=== PATIENT | female | born 1950 | race Caucasian/White ===

== ENCOUNTER 2019-12-10 09:00 | Emergency (ER) | payer MEDICARE, OTHER, SELFPAY ==
[2019-12-10 09:02] VITALS: BP 152/67; PULSE 53; RESP 17; TEMP 36.4; O2SAT 97; BMI 27.8
--- NOTE | 2019-12-10 09:24 | EKG12_ITS ---
Test Reason : Blood Pressure : / mmHG Vent. Rate : 048 BPM Atrial Rate : 048 BPM P-R Int : 162 ms QRS Dur : 092 ms QT Int : 444 ms P-R-T Axes : 067 012 015 degrees QTc Int : 396 ms Sinus bradycardia Low voltage QRS Borderline ECG Confirmed by STONE TERRELL, PATRICOI ([id number]), non linear editor KEMAL WEIR ([id number]) on 12/12/2019 2:12:00 PM Referred By: YANELI Confirmed By:SHARI RITTER MD
--- NOTE | 2019-12-10 09:24 | RAD_ITS ---
STUDY: X-RAY CHEST REASON FOR EXAM: Female, 69 years old. Dizziness and shortness of breath. TECHNIQUE: PA and lateral views. COMPARISON: None. FINDINGS: Minimal subsegmental atelectases in the left lung base. No confluent infiltrates. There is no demonstrated pleural abnormality. Normal size heart. Normal mediastinum and charlette. Normal visualized pulmonary arteries. Normal visualized aortic arch and descending thoracic aorta. Normal visualized thoracic spine. Normal visualized ribs, clavicles, and shoulders. There is no demonstrated abnormality of the visualized soft tissue structures of the upper abdomen. RAD/Chest PA and Lateral IMPRESSION: Horizontal linear subsegmental atelectasis in the left lung base. Electronically Signed: Lamberto Drosey MD at 10:56 EST , Service support ,
[2019-12-10] MEDS: 0.9% Normal Saline 1,000 ML 150 ML IV (09:34)
--- NOTE | 2019-12-10 09:35 | ED.RN ---
NO OLD EKG
[2019-12-10 09:41] LABS: Absolute Lymphocyte Count 1.91 X10^3/uL (0.83-4.51); Absolute Neutrophil Count 4.7 X10^3/uL (2.0-7.7); Basophil# 0.07 X10^3/uL; Basophil% 0.9 % (0-1); Eosinophil# 0.23 X10^3/uL; Hematocrit 45.5 % (37-47); Hemoglobin 15.3 g/dL (12.0-15.0); Lymphocyte # 1.91 X10^3/ul (4.0); Lymphocyte % 25.2 % (19-41); Mean Corp Hgb Conc 33.6 g/dL (32-36); Mean Corpuscular Hgb 31.2 pg (27.0-32.0); Mean Corpuscular Volume 92.9 fL (81-99); Mean Platelet Vol. 9.7 fl (6.2-12.0); Monocyte# 0.67 X10^3/uL; Monocyte% 8.8 % (0-10); NRBC Flagged by Analyzer 0 % (0-5); Neutrophil # 4.68 X10^3/uL (2.7-7.7); Neutrophil % 61.8 % (47-70); Platelet Count 245 K/mm3 (150-450); RBC Distribution Width CV 12.7 % (11.6-14.6); White Blood Count 7.6 K/mm3 (4.4-11.0)
[2019-12-10 09:47] VITALS: BP 136/80; BP 149/84; BP 152/77; PULSE 47; PULSE 54
[2019-12-10 09:47] LABS: Anion Gap 2 (5-15); BUN 14 mg/dL (7-18); BUN/Creat Ratio 14.8 RATIO (10-20); Calcium,Total 8.8 mg/dL (8.5-10.1); Chloride 110 mmol/L (98-107); Creatinine, Serum 0.95 mg/dL (0.55-1.02); EST Glomerular Filtration Rate 61 mL/min (>60); Est Glom Filt Rate - Afr Amer 74 mL/min (>60); Estimated Creatinine Clearance 65.59 ml/min; Glucose 93 mg/dL (74-106); Potassium 4.3 mmol/L (3.5-5.1); Sodium Level 141 mmol/L (136-145)
--- NOTE | 2019-12-10 11:10 | ED.DCSUM_ITS ---
- ER Visit Summary Date of Service: 12/10/19 Chief Complaint: [Dizziness] History of Present Illness: The patient is a 69 F [presents to the emergency department with complaint of dizziness that started this morning. Patient states that he got out of bed and immediately noticed that he felt very off balance. Patient states that symptoms worse with standing and walking. He denies any headache. Denies nausea or vomiting. Patient does complain of some mild shortness of breath. Denies any fever or cough. He denies any chest pain. Patient tells me has no medical problems. Has had no falls or head injuries. He denies recent illness otherwise.] Physical Examination: [HEENT-PERRLA, EOMI. Cranial nerves II through XII grossly intact. TMs clear. Mucous membranes moist. No adenopathy. Cardiovascular-regular rate and rhythm without murmur or ectopy Lungs-clear to auscultation, chest wall stable without crepitus or subcu emphysema Abdomen-normoactive bowel sounds, soft, nontender, no rebound or rigidity, no peritoneal signs. Neuro zgmv-ydwgic-izyz and heel benjamin testing within normal limits, negative Romberg, negative for drift, fundi benign. Hallpike maneuver performed showed some mild nystagmus with the slow face to the left. Extremities-intact ?4, normal range of motion, normal pulses, atraumatic] Test Results: [EKG obtained arrival shows sinus bradycardia with a ventricular rate of 48 bpm with no acute segment changes. CBC with differential obtained was normal. Chemistries normal. Troponin was less than 0.15. Orthostatic vital signs were negative. And chest x-ray obtained showed atelectasis of the left lung base otherwise nothing acute.] Emergency Department Course and Treatment: Patient placed on teletypesetter monitor. Patient was given Antivert 25 mg p.o. Symptoms essentially resolved. Patient was able ambulate in department without difficulty. [] Treatment Plan: [We will be given a prescription for Antivert. Patient will be referred to his primary care physician for follow-up in 3 to 5 days.] Disposition: [Discharged home in stable condition.] Impression: [Dizziness/benign positional vertigo-resolved] This note was generated with Magzter[employer] software. It may contain incorrect words, spelling, and punctuation that were not noted in review of the chart prior to signing ED Disposition - Plan for ED Patient: Referrals: Cipriano Hammond [Primary Care Provider] -
--- NOTE | 2019-12-10 11:14 | ED.DEP ---
ED Disposition - Plan for ED Patient: Instructions: DIZZINESS, Unk Cause, Benign Positional Vertigo Prescriptions: Meclizine HCl [Antivert] 25 mg PO 4X/DAY PRN PRN #20 tab PRN Reason: Dizziness Prescription Printed Referrals: Cipriano Hammond [Primary Care Provider] - 3-5 Days
== END 2019-12-10 11:31 | disposition home or self-care (01) ==
PROVIDERS: Emergency Provider Emergency Medicine; PCP Internal Medicine
DX: H81.10 Benign paroxysmal vertigo, unspecified ear (principal)
CPT/HCPCS: 71046; 80048; 84484; 85025; 93005; 96360; 96361; 99284; J7030; A4216

== ENCOUNTER 2025-03-23 12:49 | Emergency (ER) | payer MEDICARE, OTHER, SELFPAY ==
[2025-03-23] VITALS (26 sets, daily range): BP systolic 99–124; BP diastolic 52–76; PULSE 58–74; RESP 14–28; TEMP 36.1–37.1; O2SAT 92–100; BMI 25.4
--- NOTE | 2025-03-23 13:06 | EX.ED.DYSGE1 ---
HPI History of Present Illness Chief Complaint: Abn Labs Narrative Narrative: Chief complaint and HPI: Blood transfusion. 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 History taken by patient as well as [facility] provider from oncology who called me prior to patient's arrival. They have been trending patient's anemia. He received 1 unit on Thursday. Hemoglobin today was 7.1 and they would like the patient to receive 2 units prior to surgery tomorrow at [facility]. Patient has no complaints at this time. Denies any lightheadedness, fatigue, weakness. Review of systems: See HPI Medications: As listed on the chart Allergies: As listed on the chart PFSH: Per chart Vital signs: As listed on the chart. Reviewed. Physical exam: Gen: A&O x3, NAD Head: Normocephalic, atraumatic ENT: Moist mucous membranes CV: RRR, no murmurs, no peripheral edema Resp: Lungs CTA BL, no w/r/c Musc: Full ROM, no deformity Skin: Warm, dry, pale Neuro: Alert, oriented, grossly intact, sensation intact Psych: Cooperative [facility] Medical History (Updated 03/23/25 @ 15:36 by Laura Barbosa) Duodenal adenocarcinoma GERD (gastroesophageal reflux disease) Home Medications ?Medication ?Instructions ?Recorded ?Last Taken ?Type pantoprazole 40 mg tablet,delayed 40 mg PO DAILY 03/23/25 03/23/25 History release Allergy/AdvReac Type Severity Reaction Status Date / Time iodine Allergy Severe Itching Verified 03/23/25 12:55 Surgical History History of cholecystectomy Social History Smoking Status: Former smoker EXAM Physical Exam Const Vital Signs: 03/23/25 12:50 03/23/25 13:18 03/23/25 14:50 Temperature 96.9 F L Temperature Source Temporal Pulse Rate 74 58 L Respiratory Rate 17 24 H Respiratory Effort Normal Respiratory Depth Respiratory Pattern Normal Blood Pressure 112/67 115/52 L Blood Pressure Mean 82 73 Blood Pressure Source Blood Pressure Position Blood Pressure Location Pulse Ox 99 100 Oxygen Delivery Method Room Air Room Air 03/23/25 15:15 03/23/25 15:21 03/23/25 15:36 Temperature 98.3 F 98.5 F Temperature Source Oral Oral Pulse Rate 62 62 Respiratory Rate 16 17 Respiratory Effort Normal Respiratory Depth Normal Respiratory Pattern Normal Blood Pressure 115/58 L 117/71 Blood Pressure Mean 77 86 Blood Pressure Source Monitor Monitor Blood Pressure Position Semi-Fowlers Semi-Fowlers Blood Pressure Location Right Arm Right Arm Pulse Ox 100 100 Oxygen Delivery Method Room Air Room Air Room Air MDM MDM MDM Narrative Medical decision making narrative: 74-year-old male 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 History taken by patient as well as [facility] provider from oncology who called me prior to patient's arrival. They have been trending patient's anemia. He received 1 unit on Thursday. Hemoglobin today was 7.1 and they would like the patient to receive 2 units prior to surgery tomorrow at [facility]. Patient has no complaints at this time. Will repeat H&H and type and screen so patient can receive blood. Hemoglobin here is 6.1. Patient will receive 2 units. He is AB positive. Patient was informed of his lab results and the plan. Patient is currently receiving his blood products. Plan will be to discharge home after transfusion. Patient signed out to oncoming physician. Impression: 1. Acute on chronic anemia requiring 2 units packed red blood cells for transfusion for surgery 2. History of duodenal adenocarcinoma scheduled for Whipple procedure Lab Data Labs: Laboratory Results - last 24 hr 03/23/25 13:20 Hgb 6.1 L Blood Type AB POSITIVE Antibody Screen NEGATIVE Crossmatch See Detail Discharge Plan Triage Chief Complaint: Abn Labs ED Provider: Rico Burton Dx/Rx/DC Orders Prescriptions: No Action pantoprazole 40 mg tablet,delayed release (DR/EC) 40 mg PO DAILY Patient Comments: PT DOES NOT TAKE EVERY DAY Primary Care Provider: Cipriano Hammond Referrals: Cipriano Hammond MD [Primary Care Provider] - Print Language: Israeli
[2025-03-23 13:35] LABS: Hemoglobin 6.1 g/dL (13.0-16.5)
== END 2025-03-23 19:45 | disposition home or self-care (01) ==
PROVIDERS: Emergency Provider Surgery; PCP Internal Medicine; Visit Provider Surgery
DX: D64.9 Anemia, unspecified (principal); C17.0 Malignant neoplasm of duodenum; Z87.891 Personal history of nicotine dependence; K21.9 Gastro-esophageal reflux disease without esophagitis; Z79.899 Other long term (current) drug therapy
CPT/HCPCS: 85018; 86644; 86850; 86900; 86901; 86920; 99283; P9016; A4216

== ENCOUNTER 2025-05-15 09:11 | Day surgery (SDC) | payer MEDICARE, OTHER, SELFPAY ==
--- NOTE | 2025-05-12 16:48 | PAT.ANESEVAL ---
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 When Was Last Pacemaker Check QUESTION #4 FULL TEXT: You/Your Family Experience fever (hyperthermia) with Anesthesia Last Oral Intake Last Oral intake: Last Oral Intake NPO since Meds taken in AM with sips of water? Meds patient instructed to take am of surgery PONV PONV - integration software developer: PONV - integration software developer Female No 05/12/25 10:15 HX of Motion Sickness No 05/12/25 10:15 HX of N/V After Surgery No 05/12/25 10:15 Non-Smoker Yes 05/12/25 10:15 Duration of Surgery greater No 05/12/25 10:15 than 60 minutes Number of Risk Factors 1 05/12/25 10:15 PONV Score Low Risk 05/12/25 10:15 Height & Weight Height & Weight: Anesthesia: Height & Weight Height 6 ft 1 in 05/10/25 13:34 Respiratory Assessment Respiratory Assessment - integration software developer: Respiratory Tract Infection Hx - integration software developer Hx Respiratory Tract Infection No 05/12/25 10:15 STOP Sleep Apnea STOP Sleep Apnea - integration software developer: STOP Sleep Apnea - integration software developer Hx Hypertension No 05/12/25 10:15 Hx Sleep Apnea No 05/12/25 10:15 CPAP BIPAP Do you snore loudly (louder No 05/12/25 10:15 than talking or can be heard Do you often feel tired/ Yes 05/12/25 10:15 fatigued/ sleepy during daytime? Has anyone observed you stop No 05/12/25 10:15 breathing during sleep? STOP Results Negative 05/12/25 10:15 QUESTION #5 FULL TEXT : Do you snore loudly (louder than talking or can be heard through closed doors)? Tobacco Use History Tobacco Use History - integration software developer: Tobacco Use History - integration software developer Tobacco Use Smoking Status Former smoker 05/12/25 10:15 Hx Tobacco Use Yes 05/12/25 10:15 Years Smoking Packs Smoked per Day Smoking Cessation Date was Yes - quit smoking within 15 05/12/25 10:15 within the last 15 years years Hx Smoking Cessation Date 03/23/24 05/12/25 10:15 Hx Smoking Cessation Counseling Hematologic Medial History Hematologic Hx - integration software developer: Hematologic Medical Hx - armature winder repair Hx of Blood Transfusion Yes 05/12/25 10:15 Hx of Transfusion in last 3 Yes 05/12/25 10:15 Months Date of Last Transfusion (if 03/23/25 05/12/25 10:15 within last 3 months) Ever experience any problems No 05/12/25 10:15 with transfusion(s)? Specify any problems Hx of Preganancy in last 3 N/A 05/12/25 10:15 Months Nurse Filling Out Transfusion DSCHRIBER 05/12/25 10:15 & Questions: Date: 05/12/25 05/12/25 10:15 Time: 10:16 05/12/25 10:15 Patient unable to answer at this time (ie. confused, unrespo /Reproduction History /Reproductive History - integration software developer: /Reproductive Hx- integration software developer Hx Now No 05/12/25 10:15 Gestational Age (in weeks): EDC: Hx Hx Para Hx Section SAB No 05/12/25 10:15 Active Medications Active Medications: Current Medications Generic Name Dose Route Start Last Admin Trade Name Freq PRN Reason Stop Dose Admin Cefazolin Sodium 2 gm/ Sodium 110 mls @ 200 mls/hr 05/15/25 11:00 Chloride IV 05/15/25 11:32 INTRAOP ONE [facility] Medical History (Updated 05/12/25 @ 10:26 by Kirsty Gonzalez) Cancer Former smoker History of edema History of stress test History of echocardiogram Cancer of duodenum Iron deficiency anemia due to chronic blood loss Anemia Regional lymph node metastasis present BPH (benign prostatic hyperplasia) GERD (gastroesophageal reflux disease) Home Medications ?Medication ?Instructions ?Recorded ?Last Taken ?Type pantoprazole 40 mg tablet,delayed 40 mg PO DAILY 03/23/25 03/23/25 History release lidocaine-prilocaine 2.5 %-2.5 % 1 applic topical ONCE PRN port 05/09/25 Unknown Rx topical cream access 30 days #30 grams ondansetron 8 mg disintegrating 8 mg PO Q8H PRN nausea and 05/09/25 Unknown Rx tablet vomiting #30 tabs prochlorperazine maleate 10 mg 10 mg PO Q6H PRN nausea and 05/09/25 Unknown Rx tablet vomiting #30 tabs Allergy/AdvReac Type Severity Reaction Status Date / Time iodine Allergy Severe Itching Verified 05/12/25 10:13 Family History Mother Breast cancer, Onset Age: 75 Surgical History History of Whipple procedure History of cholecystectomy Social History Smoking Status: Former smoker Tobacco: How many years used: 20 alcohol intake: never substance use type: does not use Audit: Pertinent Findings Pertinent Findings EKG Perinent findings: March 26, 2025. Atrial fibrillation with rapid ventricular response at [address] and T wave abnormality consider inferolateral ischemia. Echo (EF%) pertinent findings: March 21, 2025. Normal global systolic function. EF of 65 to 70%. Diastolic function is normal. No aortic stenosis noted. Additional pertinent findings: Latest hemoglobin on May 01, 2025 is 9.8 g/dL Recommendation Anesthesia Recommendation Anesthesia recommendation: OPTIMIZED for anesthesia (EKG on 03/26/2025 showed atrial fibrillation with RVR and inf-lat ischemia. Patient was also severely anemic. Currently the patient's Hgb has improved to 9.8 g/dL. The echo done on March 21, 2025 is stable as above. This is a low risk procedure in a stable patient. Okay to proceed with anesthesia.)
--- NOTE | 2025-05-15 09:18 | PCM.HP.BLA ---
History and Physical Date of Admission: 05/15/25 Date of Service: 05/10/25 MR#: [id number] Acct: [id number] Name: GENARO COLEY Rep #: [id number] : 1950 Provider: Dr. Lisa Armstrong MD Age/Sex: 75/M Location: [facility] Status: Signed Intake Vital Signs 05/01/2510:11 05/09/2515:03 05/10/2513:34 Height 6 ft 1 in 6 ft 1 in 6 ft 1 in Weight: 178 lb 2 oz BMI 23.5 BP 144/72 H Blood Pressure Location Rt brachial Position Sitting Respiration 18 Pulse 72 Pulse Source Monitor Temp 97.2 F L Temp Source Temporal Pulse Oximetry (%) 99 Oxygen Delivery Method room air Intake Visit Reasons: PORT PLACEMENT Chief Complaint: port placement Accompanied by: Is patient in pain?: No Allergies iodine Allergy (Severe, Verified 05/10/25 13:35) Itching Medications ?Medication ?Instructions ?Recorded ?Confirmed ?Type pantoprazole 40 mg tablet,delayed 40 mg PO DAILY 03/23/25 05/10/25 History release lidocaine-prilocaine 2.5 %-2.5 % 1 applic topical ONCE PRN port 05/09/25 05/10/25 Rx topical cream access 30 days #30 grams ondansetron 8 mg disintegrating 8 mg PO Q8H PRN nausea and 05/09/25 05/10/25 Rx tablet vomiting #30 tabs prochlorperazine maleate 10 mg 10 mg PO Q6H PRN nausea and 05/09/25 05/10/25 Rx tablet vomiting #30 tabs Have you fallen in the past year?: No PFSH Medical History Encounter for education Cancer of duodenum Iron deficiency anemia due to chronic blood loss Anemia Regional lymph node metastasis present BPH (benign prostatic hyperplasia) GERD (gastroesophageal reflux disease) Surgical History History of Whipple procedure History of cholecystectomy Family History Mother Breast cancer, Onset Age: 75 Social History Smoking Status: Former smoker Tobacco: How many years used: 20 alcohol intake: never substance use type: does not use HPI HPI HPI: 75-year-old male presents for port placement due to duodenal carcinoma. Patient status post Whipple end of April at [facility]. Patient starting chemotherapy on May 24 per patient. ROS General General: Yes weight change and fatigue; No appetite, colon cancer, breast cancer or weakness HEENT HEENT: No difficulty swallowing, eye injury, eye surgery, swollen glands or hoarseness Endo Endocrine: No thyroid disease, diabetes mellitus, thyroid cancer, Hair loss, heat intolerance or cold intolerance Skin Skin: No rash or changing moles Musc Musculoskeletal: No back problems, arthritis, rheumatoid arthritis, gout or joint pain Cardio Cardiovascular: No murmur, pacemaker, heart disease, atrial fibrillation, high blood pressure, heart attack, heart stent, palpitations, shortness of breath with exertion or chest pain Psych Psychiatric: No depression, anxiety or hearing voices Resp Respiratory: No shortness of breath, No sleep apnea, No cough, No COPD, No asthma, No emphysema and No wheezing Gastro Gastrointestinal: No abdominal pain, No nausea or vomiting, No diarrhea, No constipation, No blood in stool, No acid reflux, No hemorrhoids, No ulcers, No gallbladder problem and No black,tarry stools Ki Hematologic: No blood thinners, No blood disorders, No bleeding, No anemia and No blood clots Neuro Neurologic: No numbness, No tingling and No weakness Exam Const General: cooperative, comfortable and no acute distress [facility] Head: normocephalic and atraumatic Neck Neck: supple Chest Other: Palpation bilateral upper chest normal Resp Effort & Inspection: normal respiratory effort Cardio Rate: regular rate GI Inspection: non-distended Palpation: soft Other: Midline incision healing well Skin General: no rashes or lesions noted Neuro General: CN's II-XI intact bilaterally Extrem General: normal to inspection Psych Mental Status: mental status grossly normal Attitude: cooperative Assessment and Plan Assessment and Plan (1) Encounter for insertion of venous access port: Status: Acute (2) Cancer of duodenum: Status: Acute Plan I have discussed above with the patient- Port-a-Cath placement. Right possible left IJ Patient has been counseled as to the risks/benefits of the procedure. I have explained the risks of the surgery, including but not limited to: infection, bleeding, injury to any blood vessels/nerves, injury to lungs (such as pneumothorax or hemothorax and need for chest tube), not having any access, nonfunctioning of port due to thrombosis, infection of port, etc. the patient understands and agrees to proceed. I have answered all the patient's questions to the patient?s satisfaction and the patient has no further questions. Lisa Armstrong M.D. Pager: [phone] [facility] [address] [place] [address], [address] [place] [address] Office: [phone] Coding Level of Care Code Off vis,new,level 3 Diagnoses Encounter for insertion of venous access port Z45.2 Cancer of duodenum C17.0 Clinical Quality Measures Falls Risk Screening/Assistive Devices Have you fallen in the past year?: No 05/10/25 1358 <Electronically signed by Lisa Armstrong MD> Date Lisa Armstrong MD
--- NOTE | 2025-05-15 09:34 | PCM.PRE.AN2 ---
ASA Classification* ASA Classification ASA Classification: 3 Assessment & Plan Anesthesia* Anesthesia Assessment Anesthesia Assessment: Discussed sedation and/or anesthesia options, risks, benefits, and alternatives with patient/parents/legal guardian/POA. Questions invited. The patient/parents/legal guardian/POA seems to understand and agrees to proceed with anesthesia plan. Reviewed the physical assessment, medical history, allergy history and patient home medications list prior to surgery/procedure/anesthetic and documented any changes. Performed airway and anesthesia risk assessments. Anesthesia Type Anesthesia Type: MAC Anesthesia Focused Assessment* Airway Assessment Mouth opens: >3 cm Mallampati Score: II Labs Anesthesia Preop lab: CBC WBC 12.9 K/mm3 (4.4-11.0) H 05/01/25 11:05/01/25 RBC 3.94 M/mm3 (4.6-6.2) L 05/01/25 11:05/01/25 Hgb 9.8 g/dL (13.0-16.5) L 05/01/25 11:05/01/25 Hct 32.3 % (40-54) L 05/01/25 11:05/01/25 Plt Count 605 K/mm3 (150-450) H 05/01/25 11:05/01/25 CHEMISTRY Potassium 3.8 mmol/L (3.3-5.1) 05/01/25 11:05/01/25 Sodium 138 mmol/L (133-145) 05/01/25 11:05/01/25 Magnesium 2.2 mg/dL (1.5-2.2) 05/01/25 11:05/01/25 Phosphorus 3.1 mg/dL (2.7-4.5) 05/01/25 11:05/01/25 BUN 7 mg/dL (4-19) 05/01/25 11:05/01/25 Creatinine 0.61 mg/dL (0.70-1.20) L 05/01/25 11:05/01/25 Glucose 103 mg/dL (70-99) H 05/01/25 11:05/01/25 COAG Pre-Assessment Diagnosis/Proposed Procedure Planned Operative Procedure(s): RIGHT POSS LEFT INTERNAL JUGULAR PORT Anesthesia History 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 When Was Last Pacemaker Check QUESTION #4 FULL TEXT: You/Your Family Experience fever (hyperthermia) with Anesthesia Last Oral Intake Last Oral intake: Last Oral Intake NPO since Meds taken in AM with sips of water? Meds patient instructed to take am of surgery PONV PONV - pin machine operator: PONV - pin machine operator Female No 05/12/25 10:15 HX of Motion Sickness No 05/12/25 10:15 HX of N/V After Surgery No 05/12/25 10:15 Non-Smoker Yes 05/12/25 10:15 Duration of Surgery greater No 05/12/25 10:15 than 60 minutes Number of Risk Factors 1 05/12/25 10:15 PONV Score Low Risk 05/12/25 10:15 Height & Weight Height & Weight: Anesthesia: Height & Weight Height 6 ft 1 in 05/10/25 13:34 Respiratory Assessment Respiratory Assessment - pin machine operator: Respiratory Tract Infection Hx - pin machine operator Hx Respiratory Tract Infection No 05/12/25 10:15 STOP Sleep Apnea STOP Sleep Apnea - pin machine operator: STOP Sleep Apnea - pin machine operator Hx Hypertension No 05/12/25 10:15 Hx Sleep Apnea No 05/12/25 10:15 CPAP BIPAP Do you snore loudly (louder No 05/12/25 10:15 than talking or can be heard Do you often feel tired/ Yes 05/12/25 10:15 fatigued/ sleepy during daytime? Has anyone observed you stop No 05/12/25 10:15 breathing during sleep? STOP Results Negative 05/12/25 10:15 QUESTION #5 FULL TEXT : Do you snore loudly (louder than talking or can be heard through closed doors)? Tobacco Use History Tobacco Use History - pin machine operator: Tobacco Use History - pin machine operator Tobacco Use Smoking Status Former smoker 05/12/25 10:15 Hx Tobacco Use Yes 05/12/25 10:15 Years Smoking Packs Smoked per Day Smoking Cessation Date was Yes - quit smoking within 15 05/12/25 10:15 within the last 15 years years Hx Smoking Cessation Date 03/23/24 05/12/25 10:15 Hx Smoking Cessation Counseling Hematologic Medial History Hematologic Hx - pin machine operator: Hematologic Medical Hx - armature bander Hx of Blood Transfusion Yes 05/12/25 10:15 Hx of Transfusion in last 3 Yes 05/12/25 10:15 Months Date of Last Transfusion (if 03/23/25 05/12/25 10:15 within last 3 months) Ever experience any problems No 05/12/25 10:15 with transfusion(s)? Specify any problems Hx of Preganancy in last 3 N/A 05/12/25 10:15 Months Nurse Filling Out Transfusion DSCHRIBER 05/12/25 10:15 & Questions: Date: 05/12/25 05/12/25 10:15 Time: 10:16 05/12/25 10:15 Patient unable to answer at this time (ie. confused, unrespo /Reproduction History /Reproductive History - pin machine operator: /Reproductive Hx- pin machine operator Hx Now No 05/12/25 10:15 Gestational Age (in weeks): EDC: Hx Hx Para Hx Section SAB No 05/12/25 10:15 Active Medications Active Medications: Current Medications Generic Name Dose Route Start Last Admin Trade Name Freq PRN Reason Stop Dose Admin Cefazolin Sodium 2 gm/ Sodium 110 mls @ 200 mls/hr 05/15/25 11:00 Chloride IV 05/15/25 11:32 INTRAOP ONE Lactated Ringer's 1,000 mls @ 15 mls/hr 05/15/25 09:30 IV .Q48H PAMELA PFSH Medical History Cancer Former smoker History of edema History of stress test History of echocardiogram Cancer of duodenum Iron deficiency anemia due to chronic blood loss Anemia Regional lymph node metastasis present BPH (benign prostatic hyperplasia) GERD (gastroesophageal reflux disease) Home Medications ?Medication ?Instructions ?Recorded ?Last Taken ?Type pantoprazole 40 mg tablet,delayed 40 mg PO DAILY 03/23/25 03/23/25 History release lidocaine-prilocaine 2.5 %-2.5 % 1 applic topical ONCE PRN port 05/09/25 Unknown Rx topical cream access 30 days #30 grams ondansetron 8 mg disintegrating 8 mg PO Q8H PRN nausea and 05/09/25 Unknown Rx tablet vomiting #30 tabs prochlorperazine maleate 10 mg 10 mg PO Q6H PRN nausea and 05/09/25 Unknown Rx tablet vomiting #30 tabs Allergy/AdvReac Type Severity Reaction Status Date / Time iodine Allergy Severe Itching Verified 05/12/25 10:13 Family History Mother Breast cancer, Onset Age: 75 Surgical History History of Whipple procedure History of cholecystectomy Social History Smoking Status: Former smoker Tobacco: How many years used: 20 alcohol intake: never substance use type: does not use Review of Systems (Anesthesia) ROS Narrative System reviewed and no additional complaints, except as documented.
[2025-05-15 09:45] VITALS: BP 133/78; PULSE 63; RESP 20; TEMP 36.2; O2SAT 95; BMI 22.6
[2025-05-15] MEDS: Lactated Ringers 1,000 ML 15 ML IV (09:55)
[2025-05-15] MEDS: Lidocaine 1% /Epi 1:100 (20ml) 20 ML Vial (11:45)
--- NOTE | 2025-05-15 11:55 | RAD_ITS ---
PROCEDURE: CXR FOR LINE PLACEMENT 05/15/2025 REASON FOR EXAM: PORT TECHNIQUE: CXR FOR LINE PLACEMENT COMPARISON: None FINDINGS: A right-sided port a catheter has been placed. The tip is at the junction of the superior vena cava and right atrium. No evidence of pneumothorax. RAD/CXR for Line Placement IMPRESSION: The tip of the right-sided port a catheter is at the junction of the superior v agustín cava and right atrium. No evidence of pneumothorax. Reading Location: [facility]
--- NOTE | 2025-05-15 11:55 | OP.PCM_ITS ---
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, duodenal carcinoma Post-Operative Diagnosis: Same Surgery/Procedure Performed: Placement of right IJ Port-A-Cath Use of fluoroscopy Use of ultrasound project analyst: No Type of Anesthesia: Local MAC RN Documented Start/Stop Times: Operation Date: 05/15/25 11:00 Case Time Into Pre-Op 05/15/25 09:19 Out of Pre-Op 05/15/25 11:08 Anesthesia Start 05/15/25 11:12 Into Room 05/15/25 11:12 Procedure Start 05/15/25 11:29 Procedure End 05/15/25 11:52 Anesthesia End 05/15/25 11:57 Out of Room 05/15/25 11:57 Into Recovery 05/15/25 12:00 Out of Recovery 05/15/25 12:12 Into Phase II Recovery 05/15/25 12:14 Out of Phase II 05/15/25 13:02 Procedure Start Time: 11:29 Procedure Stop Time: 11:52 Select all DRAINS/GRAFTS/IMPLANTS that apply: Implanted device Implanted device details: [employer] PowerPort isp M.R.I. 6Fr Lot [id number] Special Medications: Ancef 2 g IV x 1 Estimated Blood Loss: < 10 cc Specimen collected: No Description of surgery: After informed consent was given, the patient was brought to the operating room and placed in the supine position. Appropriate time out protocol was followed. Patient was then given IV conscious sedation for anesthesia. The patient's right upper chest and neck were then prepped with a surgical skin preparation and sterile surgical drapes were placed. After proper landmarks were ascertained, the skin at the upper right chest area was then infiltrated with 1:1 mixture of 1% lidocaine with epinephrine and 0.5% marcaine. A needle trocar was then inserted into the right internal jugular vein with ultrasound guidance-multiple vessels were viewed with u/s and the right IJ was chosen-- and there was good aspiration of venous blood. A wire was then threaded into the needle trocar and this was visualized under fluoroscopy to ensure that the wire was in the superior vena cava. Once this was done, then the needle trocar was removed. A small skin rajesh was made with an 11 blade knife at the wire entrance site. The dilator with the introducer sheath attached was then placed over the wire into the right internal jugular vein via the Seldinger technique and this was visualized under fluoroscopy. The dilator and sheath were in proper position as visualized by fluoroscopy. A subcutaneous pocket was then created caudad to the catheter insertion site. A transverse skin incision was made after the skin and subcutaneous tissues were infiltrated with local anesthetic. Blunt dissection was then used to create a space large enough for placement of the subcutaneous port. The catheter was then tunneled into the subcutaneous pocket. The wire and dilator were then removed. The catheter was then threaded into the introducer sheath and was positioned with its tip at the junction of the superior vena cava and the right atrium as visualized under fluoroscopy. The excess catheter was transected. The catheter was then attached to the subcutaneous port using manufacturers guidelines. The catheter was flushed with a heparin saline mixture prior to placement. Hemostasis was carefully controlled with electrocautery. The port was sutured to the subcutaneous fascia using 2-0 Vicryl suture at two sites. The port was then placed in the subcutaneous pocket. The incision were reapproximated with interrupted subdermal 3-0 vicryl sutures. The skin was reapproximated with 3-0 nylon suture in a interrupted fashion. Steristrips were used for reinforcement of the skin closure at IJ insertion site and a sterile opsite dressings were applied. The patient tolerated the procedure well. Surgical Findings: See operative report Complications Complications: No
[2025-05-15 12:00] VITALS: BP 123/68; BP 133/78; PULSE 63; PULSE 65; RESP 16; RESP 18; TEMP 36.6; O2SAT 100
--- NOTE | 2025-05-15 12:00 | PCM.POST.ANE ---
Anesthesia: Postop Eval I Current Vital Signs Temperature: 97.9 F Pulse Rate: 65 Blood Pressure: 123/68 Respiratory Rate: 18 Pulse Ox: 100 Assessment Airway patent: Yes Spontaneous unlabored respirations: Yes nausea: No Vomiting: No Anesthesia Complication: No Fluid Hydration Crystalloid volume administer (ml): 1,000 Total IV fluid infused: 1,000 Progress Note Anesthesia document: Postop Eval 1 completed: Yes
[2025-05-15 12:05] VITALS: BP 133/78; BP 140/79; PULSE 64; RESP 16; O2SAT 100
--- NOTE | 2025-05-15 12:06 | EX.PCM.DISCH ---
Discharge Instructions Procedure Port-A-Cath Diet Discharge Diet: Light diet - advance as tolerated Activity May shower in (days): 5 (Keep port site clean and dry x5 days. Neck incision okay to get wet after 1 day. Okay to lower shower and upper sponge bath. OR okay to taper off port site with a Ziploc bag to shower) Lifting Restrictions: No lifting > 15 pounds for 3 days with the arm on the side of the port Dressing / Incision Call your doctor if your incision/area has: Continuous Slow Oozing, Sudden Increased Bleeding, Increased Pain/ Swelling, Increased Redness, Foul Smelling Discharge and Swelling at the incision site Call your doctor if you observe: Fever of 101 or Higher Change Dressing in: 2 days (2-3 days- port site; ok to remove neck opsite in 1 day) Follow Up Care Please Follow Up With: Lisa Armstrong MD When: In 10 days for permanent suture removal?call office for appointment Test Results: Test results from this visit will be discussed in further detail at your follow-up appointment, if applicable. Discharge Plan Admission Attending Provider: Lisa Armstrong Primary Care Provider: Isidra Quiros Instructions Print Language: Colombian Discharge Orders/Prescriptions Prescriptions: New tramadol 50 mg tablet 50 mg PO Q6H PRN (Reason: pain) 3 Days Qty: 5 0RF Continued lidocaine-prilocaine 2.5-2.5 % cream 1 applic topical ONCE PRN (Reason: port access) 30 Days Qty: 30 2RF ondansetron 8 mg tablet,disintegrating 8 mg PO Q8H PRN (Reason: nausea and vomiting) Qty: 30 2RF prochlorperazine maleate 10 mg tablet 10 mg PO Q6H PRN (Reason: nausea and vomiting) Qty: 30 2RF pantoprazole 40 mg tablet,delayed release (DR/EC) 40 mg PO DAILY Patient Comments: PT DOES NOT TAKE EVERY DAY Referrals / Follow Up: Isidra Quiros MD [Primary Care Provider] - Disposition Disposition (needs filled in before D/C Order can be placed): Home, Self Care
[2025-05-15 12:10] VITALS: BP 133/78; BP 138/82; PULSE 63; RESP 16; TEMP 37; O2SAT 100
[2025-05-15 12:40] VITALS: BP 133/78
--- NOTE | 2025-05-15 13:56 | POSTOPAN2_ITS ---
Anesthesia Postop Eval I Sum Postop Eval Completion status Anesthesia document: Postop Eval 1 completed: Yes Anesthesia Postop Eval I Summary Anesthesia Postop Eval I Summary: Anesthesia Postop Eval I: Assessment Summary Airway patent Yes 05/15/25 12:00 UTILIZATION MANAGEMENT MANAGER.CSIR Spontaneous unlabored Yes 05/15/25 12:00 UTILIZATION MANAGEMENT MANAGER.CSIR respirations Mental status nausea No 05/15/25 12:00 UTILIZATION MANAGEMENT MANAGER.CSIR Vomiting No 05/15/25 12:00 UTILIZATION MANAGEMENT MANAGER.CSIR Anesthesia Postop Eval I: Fluid Summary Crystalloid volume administer 1,000 05/15/25 12:00 UTILIZATION MANAGEMENT MANAGER.CSIR (ml) Colloids volume administered ( ml) Blood Product volume administered (ml) Total IV fluid infused 1,000 05/15/25 12:00 UTILIZATION MANAGEMENT MANAGER.CSIR Anesthesia Postop Eval I: Summary Notes Anesthesia Complication No 05/15/25 12:00 UTILIZATION MANAGEMENT MANAGER.CSIR Anesthesia Complication Comment: Post-operative progress note Anesthesia: Postop Eval II Evaluation Mental status: Awake Pain Level: 0 nausea: No Vomiting: No
--- NOTE | 2025-05-15 13:56 | PCM.POSTANE2 ---
Anesthesia Postop Eval I Sum Postop Eval Completion status Anesthesia document: Postop Eval 1 completed: Yes Anesthesia Postop Eval I Summary Anesthesia Postop Eval I Summary: Anesthesia Postop Eval I: Assessment Summary Airway patent Yes 05/15/25 12:00 CONTRACTS MANAGER.CSIR Spontaneous unlabored Yes 05/15/25 12:00 CONTRACTS MANAGER.CSIR respirations Mental status nausea No 05/15/25 12:00 CONTRACTS MANAGER.CSIR Vomiting No 05/15/25 12:00 CONTRACTS MANAGER.CSIR Anesthesia Postop Eval I: Fluid Summary Crystalloid volume administer 1,000 05/15/25 12:00 CONTRACTS MANAGER.CSIR (ml) Colloids volume administered ( ml) Blood Product volume administered (ml) Total IV fluid infused 1,000 05/15/25 12:00 CONTRACTS MANAGER.CSIR Anesthesia Postop Eval I: Summary Notes Anesthesia Complication No 05/15/25 12:00 CONTRACTS MANAGER.CSIR Anesthesia Complication Comment: Post-operative progress note Anesthesia: Postop Eval II Evaluation Mental status: Awake Pain Level: 0 nausea: No Vomiting: No
== END 2025-05-15 13:02 | disposition home or self-care (01) ==
LOC: SDC 09:12 → AC 09:13
PROVIDERS: PCP Student in an Organized Health Care Education/Training Program; Referring Provider Surgery; Visit Provider Surgery
PROC: (CPT 36561; principal; 2025-05-15 10:45)
DX: Z45.2 Encounter for adjustment and management of vascular access device (principal); C17.0 Malignant neoplasm of duodenum; K21.9 Gastro-esophageal reflux disease without esophagitis; Z90.49 Acquired absence of other specified parts of digestive tract; Z79.899 Other long term (current) drug therapy; Z87.891 Personal history of nicotine dependence
CPT/HCPCS: 36561; 00532; 71045; 77001; J2405

== ENCOUNTER 2025-05-24 10:56 | Emergency (ER) | payer MEDICARE, OTHER, SELFPAY ==
[2025-05-24 10:57] VITALS: BP 117/65; PULSE 80; RESP 20; TEMP 36.4; O2SAT 99
[2025-05-24 11:05] VITALS: BMI 23.3
--- NOTE | 2025-05-24 11:20 | EKG12_ITS ---
Test Reason : chest tightness Blood Pressure : */* mmHG Vent. Rate : 65 BPM Atrial Rate : 65 BPM P-R Int : 190 ms QRS Dur : 80 ms QT Int : 442 ms P-R-T Axes : 58 22 26 degrees QTcB Int : 459 ms Normal sinus rhythm Normal ECG Confirmed by MINNIE TERRELL, PEDRO LUIS ([id number]), news copy editor KEMAL WEIR ([id number]) on 05/25/2025 9:26:54 AM Referred By: Confirmed By: PEDRO LUIS HARTMAN MD
[2025-05-24] MEDS: 0.9% Normal Saline (1000mL) 1,000 ML 150 ML IV (11:32)
[2025-05-24 11:50] LABS: Hematocrit 32.0 % (40-54); Hemoglobin 9.6 g/dL (13.0-16.5); Immature Granulocytes Count 0.020 X10^3/uL (0.0-0.0); Mean Corp Hgb Conc 30.0 g/dL (32-36); Mean Corpuscular Volume 83.1 fL (80-94); Mean Platelet Vol. 9.3 fl (6.2-12.0); NRBC Flagged by Analyzer 0 % (0-5); POSITIVE MORPHOLOGY YES; Platelet Count 325 K/mm3 (150-450); RBC Distribution Width CV 20.1 % (11.6-14.6); RBC Distribution Width SD 58.6 fl (35.1-43.9); Red Blood Count 3.85 M/mm3 (4.6-6.2); White Blood Count 6.1 K/mm3 (4.4-11.0)
[2025-05-24 11:51] LABS: Differential Indicated SCAN CRITERIA MET
[2025-05-24 12:18] LABS: Anisocytosis 1+
[2025-05-24 12:19] LABS: Anion Gap 10 (5-15); BUN 9 mg/dL (4-19); BUN/Creat Ratio 12.1 RATIO (10-20); Calcium,Total 8.6 mg/dL (7.6-11.0); Carbon Dioxide 24.3 mmol/L (21.0-32.0); Chloride 106 mmol/L (98-108); Estimated Creatinine Clearance 88.78 ml/min (50-250); Glucose 118 mg/dL (70-99); Potassium 3.7 mmol/L (3.3-5.1); Troponin T High Sensitivity 11 ng/L (<=22)
[2025-05-24 12:22] VITALS: PULSE 60; RESP 15; O2SAT 98
[2025-05-24 12:30] VITALS: BP 121/67; PULSE 55; RESP 11; O2SAT 92
[2025-05-24 12:45] VITALS: BP 122/66; PULSE 60; RESP 11
[2025-05-24 13:00] VITALS: PULSE 57; RESP 7; O2SAT 100
[2025-05-24 13:22] LABS: Troponin T High Sens 2 HR 11 ng/L (<=22)
[2025-05-24 13:26] VITALS: BP 139/80; PULSE 59; RESP 14; TEMP 37; O2SAT 100
--- NOTE | 2025-05-24 13:26 | EX.ED.DYSGE1 ---
HPI History of Present Illness Chief Complaint: Allergic Reaction [facility] Medical History (Updated 05/24/25 @ 13:[address] Susan Joseph, DO) Cancer Former smoker History of edema History of stress test History of echocardiogram Cancer of duodenum Iron deficiency anemia due to chronic blood loss Anemia Regional lymph node metastasis present BPH (benign prostatic hyperplasia) GERD (gastroesophageal reflux disease) Home Medications Medication Instructions Recorded Last Taken Type pantoprazole 40 mg tablet,delayed 40 mg PO DAILY 03/23/25 05/15/25 History release lidocaine-prilocaine 2.5 %-2.5 % 1 applic topical ONCE PRN port 05/09/25 Unknown Rx topical cream access 30 days #30 grams ondansetron 8 mg disintegrating 8 mg PO Q8H PRN nausea and 05/09/25 Unknown Rx tablet vomiting #30 tabs prochlorperazine maleate 10 mg 10 mg PO Q6H PRN nausea and 05/09/25 Unknown Rx tablet vomiting #30 tabs tramadol 50 mg tablet 50 mg PO Q6H PRN pain 3 days #5 05/15/25 Unknown Rx tabs Allergy/AdvReac Type Severity Reaction Status Date / Time iodine Allergy Severe Itching Verified 05/24/25 11:01 leucovorin AdvReac Unknown Chest Unverified 05/24/25 12:13 tightness Family History Mother Breast cancer, Onset Age: 75 Surgical History History of Whipple procedure History of cholecystectomy Social History Smoking Status: Former smoker Tobacco: How many years used: 20 alcohol intake: never substance use type: does not use EXAM Physical Exam Const Vital Signs: 05/24/25 10:57 05/24/25 12:22 05/24/25 12:30 Temperature 97.5 F L Temperature Source Temporal Pulse Rate 80 60 55 L Respiratory Rate 20 H 15 11 L Blood Pressure 117/65 121/67 H Blood Pressure Mean 82 84 Pulse Ox 99 98 92 Oxygen Delivery Method Room Air Room Air 05/24/25 12:45 05/24/25 13:00 Temperature Temperature Source Pulse Rate 60 57 L Respiratory Rate 11 L 7 L Blood Pressure 122/66 H Blood Pressure Mean 83 Pulse Ox 100 Oxygen Delivery Method Room Air MDM MDM MDM Narrative Medical decision making narrative: Patient presents to the emergency department with concern for allergic reaction to first chemo therapy. Symptoms currently resolved on arrival to the ER. Patient has no heart history. Tells me he recently [facility] that was essentially unremarkable. Patient had an EKG obtained arrival showed sinus rhythm with ventricular rate of 65 bpm with no acute ST segment changes. CBC with differential shows a white count 6.1 with hemoglobin 9.6 and platelet count of 325. Chemistries unremarkable. First troponin was 11. Delta troponin 2 hours later was also 11. Patient has remained asymptomatic during his stay here. I spoke with Dr. Trent who asked that we send patient back up to the infusion center and they will discuss next steps. Patient will be discharged to home in stable condition. Lab Data Attestation: I reviewed the patient's lab results. Labs: Laboratory Results - last 24 hr 05/24/25 05/24/25 11:43 12:53 WBC 6.1 RBC 3.85 L Hgb 9.6 L Hct 32.0 L MCV 83.1 MCH 24.9 L MCHC 30.0 L RDW Std Deviation 58.6 H RDW Coeff of Bharti 20.1 H Plt Count 325 MPV 9.3 Immature Gran % (Auto) 0.300 Neut % (Auto) 78.9 H Lymph % (Auto) 16.2 L Pickett % (Auto) 2.5 Eos % (Auto) 1.6 Baso % (Auto) 0.5 Absolute Neuts (auto) 4.8 Absolute Lymphs (auto) 0.99 Nucleated RBC % 0 Platelet Estimate ADEQUATE Anisocytosis 1+ Ovalocytes 1+ Sodium 141 Potassium 3.7 Chloride 106 Carbon Dioxide 24.3 Anion Gap 10 BUN 9 Creatinine 0.71 Estim Creat Clear Calc 88.78 Est GFR (MDRD) Non-Af 95 BUN/Creatinine Ratio 12.1 Glucose 118 H Calcium 8.6 Troponin T High Sens 11 Troponin T Hi Sens 2 Hr 11 EKG Initial EKG: Attestation: I personally reviewed and interpreted this EKG as follows: Comments: Sinus rhythm with ventricular rate of 65 bpm with no acute ST segment changes Discharge Plan Triage Chief Complaint: Allergic Reaction ED Provider: Susan Joseph Dx/Rx/DC Orders Clinical Impression: Allergy or intolerance to drug Instructions: ED ADVERSE DRUG REACTION Allergic Prescriptions: No Action lidocaine-prilocaine 2.5-2.5 % cream 1 applic topical ONCE PRN (Reason: port access) 30 Days Qty: 30 2RF ondansetron 8 mg tablet,disintegrating 8 mg PO Q8H PRN (Reason: nausea and vomiting) Qty: 30 2RF prochlorperazine maleate 10 mg tablet 10 mg PO Q6H PRN (Reason: nausea and vomiting) Qty: 30 2RF pantoprazole 40 mg tablet,delayed release (DR/EC) 40 mg PO DAILY Patient Comments: PT DOES NOT TAKE EVERY DAY tramadol 50 mg tablet 50 mg PO Q6H PRN (Reason: pain) 3 Days Qty: 5 0RF Primary Care Provider: Isidra Quiros Referrals: Isidra Quiros MD [Primary Care Provider] - Activity Restrictions/Additional Instructions: Please return to the infusion center to discuss next steps with your oncologist. Print Language: Guamanian Disposition Disposition: Home, Self Care
== END 2025-05-24 13:38 | disposition home or self-care (01) ==
PROVIDERS: Emergency Provider Emergency Medicine; PCP Student in an Organized Health Care Education/Training Program; Visit Provider Emergency Medicine
DX: Z51.11 Encounter for antineoplastic chemotherapy (principal); C77.9 Secondary and unspecified malignant neoplasm of lymph node, unspecified; C17.0 Malignant neoplasm of duodenum; T45.1X5A Adverse effect of antineoplastic and immunosuppressive drugs, initial encounter; Z87.891 Personal history of nicotine dependence; K21.9 Gastro-esophageal reflux disease without esophagitis; D50.0 Iron deficiency anemia secondary to blood loss (chronic)
CPT/HCPCS: 80048; 80053; 83735; 84484; 85025; 93005; 96360; 96361; 96367; 96375; 96413; 96417; 99284; J0640; A4216; J2469; J9263